=== PATIENT | male | born 1990 | race Caucasian/White ===

== ENCOUNTER 2017-11-29 09:58 | Emergency (ER) | payer MEDICAID ==
[~2017-11-29] VITALS: Ht 175.3 cm; Wt 79.1 kg
[2017-11-29 10:07] VITALS: Ht 175.3 cm; Wt 79.1 kg
[2017-11-29] MEDS ORDERED: NORCO 7.5/325 T1 TA1 PO (13:14)
[2017-11-29 13:20] VITALS: BP 105/66
== END 2017-11-29 13:20 | disposition home or self-care (01) ==
LOC: D.ER 09:58
DX: M54.5 Low back pain (principal); F17.200 Nicotine dependence, unspecified, uncomplicated

== ENCOUNTER 2018-01-13 15:19 | Emergency (ER) | payer MEDICAID ==
[~2018-01-13] VITALS: Ht 175.3 cm; Wt 77.3 kg
[~2018-01-13 15:19] MED LIST: NORCO 7.5/325 T1 TA1 PO
[2018-01-13 15:23] VITALS: Ht 175.3 cm; Wt 77.3 kg
[2018-01-13] MEDS ORDERED: TORADOL10 MG PO (17:15)
[2018-01-13] MEDS ORDERED: NEURONTIN 300300 MG PO (17:16)
[2018-01-13 18:24] VITALS: BP 116/74
== END 2018-01-13 18:25 | disposition home or self-care (01) ==
LOC: D.ER 15:19
DX: M54.16 Radiculopathy, lumbar region (principal); F17.200 Nicotine dependence, unspecified, uncomplicated

== ENCOUNTER 2018-05-31 18:36 | Emergency (ER) | payer MEDICAID ==
[~2018-05-31] VITALS: Ht 175.3 cm; Wt 73.2 kg
[~2018-05-31 18:36] MED LIST changes: +NEURONTIN 300300 MG PO; +TORADOL10 MG PO
[2018-05-31 18:42] VITALS: Ht 175.3 cm; Wt 73.2 kg
[2018-05-31] MEDS ORDERED: TYLENOL W/CODEI1 TAB PO (18:43)
[2018-05-31 21:43] VITALS: BP 118/85
== END 2018-05-31 21:44 | disposition home or self-care (01) ==
LOC: D.ER 18:36
DX: F41.9 Anxiety disorder, unspecified (principal); F17.200 Nicotine dependence, unspecified, uncomplicated

== ENCOUNTER 2018-11-22 21:17 | Emergency (ER) | payer MEDICAID ==
[~2018-11-22 21:17] MED LIST changes: +TYLENOL W/CODEI1 TAB PO
[2018-11-22 21:22] VITALS: BMI 26.6
[2018-11-22 22:14] LABS: BASOPHILS 0.6 % (0-2); EOSINOPHILS 2.6 % (0-7); HEMATOCRIT 39.9 % (42.0-54.0); HEMOGLOBIN 13.5 g/dL (13.5-17.5); IMMATURE GRANULOCYTES 0.2 % (0-5); LYMPHOCYTES 38.5 % (15-50); MCH 31.2 pg (26.0-34.0); MCHC 33.8 g/dL (31.0-37.0); MCV 92.1 fL (80.0-100.0); MEAN PLATELET VOLUME 9.7 fL (7.4-10.4); MONOCYTES 6.9 % (2-11); NEUTROPHILS 51.2 % (40-80); PLATELET COUNT 187 10x3/uL (130-400); RBC 4.33 10x6/uL (4.20-6.10); RDW 12.8 % (11.5-14.5); WBC 6.7 10x3/uL (4.8-10.8)
[2018-11-22 22:19] LABS: APPEARANCE CLEAR (CLEAR); BILIRUBIN NEGATIVE (NEGATIVE); COLOR YELLOW (YELLOW); GLUCOSE NEGATIVE (NEGATIVE); KETONE NEGATIVE (NEGATIVE); NITRITE NEGATIVE (NEGATIVE); PROTEIN NEGATIVE (NEGATIVE); UROBILINOGEN NORMAL (NORMAL)
[2018-11-22 22:26] LABS: ALBUMIN 3.5 g/dL (3.4-5.0); ALKALINE PHOSPHATASE 77 U/L (46-116); ALT (SGPT) 21 U/L (10-68); BILIRUBIN - TOTAL 0.34 mg/dL (0.2-1.3); CALC OSMOLALITY 280 mosm/kg (275-300); CALCIUM 8.9 mg/dL (8.5-10.1); CARBON DIOXIDE 25.6 mmol/L (21.0-32.0); CHLORIDE - SERUM 107 mmol/L (98-107); CREATININE - SERUM 0.8 mg/dL (0.6-1.3); GLUCOSE 83 mg/dL (74-106); POTASSIUM - SERUM 3.5 mmol/L (3.5-5.1); PROTEIN - SERUM 6.6 g/dL (6.4-8.2); SODIUM 142 mmol/L (136-145); UREA NITROGEN 11 mg/dL (7-18); eGFR NON AFRICAN AMERICAN > 90 mL/min (90-120)
[2018-11-23] MEDS ORDERED: CIPRO500 MG PO (00:29)
[2018-11-23] MEDS ORDERED: FLAGYL500 MG PO (00:29)
[2018-11-23] MEDS ORDERED: ZOFRAN ODT4 MG/UDTAB PO (00:29)
[2018-11-23 00:46] VITALS: BP 111/64
== END 2018-11-23 00:46 | disposition home or self-care (01) ==
LOC: D.ER 21:17
PROVIDERS: Family Medicine
DX: R10.9 Unspecified abdominal pain (principal); K52.9 Noninfective gastroenteritis and colitis, unspecified

== ENCOUNTER → 2019-07-14 10:56 | Outpatient (CLI) | payer MEDICAID ==
[~2019-07-14 10:56] MED LIST changes: +CIPRO500 MG PO; +FLAGYL500 MG PO; +ZOFRAN ODT4 MG/UDTAB PO
== END | disposition home or self-care (01) ==
LOC: D.CT 07-10 13:30
PROVIDERS: ATTEND Internal Medicine Pulmonary Disease
DX: J93.83 Other pneumothorax (principal)

== ENCOUNTER → 2019-09-09 11:46 | Outpatient (CLI) | payer MEDICAID | END | disposition home or self-care (01) | LOC: D.RT 11:46 | PROVIDERS: ATTEND Internal Medicine Pulmonary Disease | DX: R06.00 Dyspnea, unspecified (principal) ==